=== PATIENT | female | born 1960 | race Caucasian/White ===

== ENCOUNTER 2020-04-24 18:26 | Inpatient (IN) | payer BC ==
[~2020-04-24] VITALS: Ht 157.5 cm; Wt 61.4 kg
[2020-04-24] MEDS ORDERED: ondansetron/PF 4mg/2ml inj IV ONE (19:35)
[2020-04-24] MEDS ORDERED: CefTRIAXone/D5W-Rocephin 1gm 50 ML IV ONE (19:35)
[2020-04-24] MEDS ORDERED: normal saline 1000ML IV soln IVB ONE ×2 (19:35→20:50)
[2020-04-24 20:13] LABS: BASOPHILS % (AUTO) 0.4 % (0-1); EOSINOPHILS # (AUTO) 0.1 X10'3 (0-0.9); EOSINOPHILS % (AUTO) 0.5 % (0-6); HEMATOCRIT 39.3 % (35.0-45.0); LYMPHOCYTES # (AUTO) 1.7 X10'3 (1.1-4.8); LYMPHOCYTES % (AUTO) 17.4 % (21-51); MEAN CORPUSCULAR HEMOGLOBIN 30.4 PG (27.0-31.0); MEAN CORPUSCULAR VOLUME 92.1 FL (78-98); MEAN PLATELET VOLUME 7.3 FL (7.4-10.4); MONOCYTES % (AUTO) 0.4 % (2-12); NEUTROPHILS % (AUTO) 81.3 % (42-75); PLATELET COUNT 289 X10'3 (140-440); RED BLOOD COUNT 4.27 X10'6 (4.20-5.60); RED CELL DISTRIBUTION WIDTH 14.8 % (11.5-14.5); WHITE BLOOD COUNT 9.8 X10'3 (4.5-11.0)
[2020-04-24 20:26] LABS: CLARITY,URINE CLEAR (Clear); COLOR,URINE YELLOW (Yellow); GLUCOSE, URINE NEGATIVE (Neg); KETONES,URINE 15 mg/dl (Neg); LEUKOCYTE ESTERASE ,URINE NEGATIVE (Neg); NITRITES, URINE NEGATIVE (Neg); OCCULT BLOOD,URINE TRACE-INTACT (Neg); PH,URINE 5.5 (4.8-8.0); PROTEIN,URINE NEGATIVE (Neg)
[2020-04-24 20:28] LABS: ALANINE AMINOTRANSFERASE 96 U/L (12-78); ALBUMIN 3.2 G/DL (3.4-5.0); ALBUMIN/GLOBULIN RATIO 0.8 (1.1-1.5); ALKALINE PHOSPHATASE 158 IU/L (46-116); ANION GAP 12 (8-16); ASPARTATE AMINO TRANSFERASE 67 U/L (10-37); BILIRUBIN,TOTAL 0.4 MG/DL (0.1-1.0); BLOOD UREA NITROGEN 19 MG/DL (7-18); BUN/CREATININE RATIO 16.8 (6.6-38.0); CALCIUM 8.8 MG/DL (8.5-10.1); CHLORIDE 102 MMOL/L (99-107); CREATININE 1.13 MG/DL (0.40-0.90); GLUCOSE 131 MG/DL (70-104); POTASSIUM 4.4 MMOL/L (3.5-5.1); SODIUM 137 MMOL/L (135-145); TOTAL CARBON DIOXIDE 23.3 MMOL/L (24-32); TOTAL PROTEIN 7.4 G/DL (6.4-8.2); eGFR 50 ML/MIN
[2020-04-24 20:39] LABS: UA COLLECTION TYPE CLN CATCH MIDSTREAM
[2020-04-24 20:40] LABS: BACTERIA,URINE FEW /HPF (Neg); RBC,URINE 0-2 /HPF (0-2); SQUAMOUS EPITHELIAL CELL,UR FEW /LPF (FEW); WBC,URINE 0-4 /HPF (0-4)
[2020-04-24 21:18] LABS: URINE AMPHETAMINE SCREEN NEGATIVE (Neg); URINE BARBITUATE SCREEN NEGATIVE (Neg); URINE BENZODIAZEPINES SCREEN NEGATIVE (Neg); URINE CANNABINOID SCREEN NEGATIVE (Neg); URINE COCAINE SCREEN NEGATIVE (Neg); URINE METHADONE SCREEN NEGATIVE (Neg); URINE OPIATE SCREEN NEGATIVE (Neg); URINE PHENCYCLIDINE SCREEN NEGATIVE (Neg)
[2020-04-24] MEDS ORDERED: acetaminophen 325mg tablet PO ONE ×2 (21:25→21:35)
[2020-04-24 22:20] LABS: D-DIMER 3.06 MG/L FEU (0-0.50)
[2020-04-24] MEDS ORDERED: iohexol 350MG/ML 100ml bottle IV ONE (22:40)
[2020-04-24] MEDS ORDERED: proCHLORperazine 10 MG/2 ml inj IV ONE (22:55)
[2020-04-25] VITALS (8 sets, daily range): BP systolic 88–140; BP diastolic 45–94
[2020-04-25] MEDS ORDERED: LEVO88TA2 PO (00:52)
[2020-04-25] MEDS ORDERED: LIOT5TAB10 PO (00:53)
[2020-04-25] MEDS ORDERED: METF500T PO (00:54)
[2020-04-25] MEDS ORDERED: BUPR100T13 PO (00:56)
[2020-04-25] MEDS ORDERED: MILN50TA PO (00:56)
[2020-04-25] MEDS ORDERED: PROG200C11 PO (00:56)
[2020-04-25] MEDS ORDERED: NITR100C PO (00:56)
[2020-04-25] MEDS ORDERED: potassium CL 10mEq/100ml bag 100 ML IV PRN ×2 (03:00)
[2020-04-25] MEDS ORDERED: ondansetron/PF 4mg/2ml inj IV PRN (03:00)
[2020-04-25] MEDS ORDERED: potassium Cl 20 mEq SR tablet PO PRN ×2 (03:00)
[2020-04-25] MEDS ORDERED: mag hydrox/Alum hydrox/simeth 30ml oral suspension PO PRN (03:00)
[2020-04-25] MEDS ORDERED: glucagon, human recombinant 1mg kit SUBCUT PRN (03:05)
[2020-04-25] MEDS ORDERED: MESSAGE TO PHARMACY PO ONE (03:05)
[2020-04-25] MEDS ORDERED: insulin Lispro (HumaLOG) vial - multi-dose SQ SCH (03:05)
[2020-04-25] MEDS ORDERED: dextrose 50%-water 50ml dispensing syringe IV PRN ×2 (03:05)
[2020-04-25] MEDS ORDERED: dextrose ORAL solution 15 GM/59 ML bottle PO PRN ×2 (03:05)
[2020-04-25] MEDS: normal saline 1000ml 1,000 ML IV SCH ×3 (04:23→23:01)
[2020-04-25] MEDS: magnesium hydroxide 30ml (MOM) UD suspension PO PRN ×2 (05:07→11:27)
--- NOTE | 2020-04-25 06:05 | NUR ---
Patient in room [facility]. I have received report from ESTRELLITA Urrutia and had the opportunity to ask questions and assume patient care.
[2020-04-25] MEDS ORDERED: BUPR-344 PO (06:12)
[2020-04-25] MEDS ORDERED: MILNACIPRAN HCL 50 MG TABLET PO SCH (08:00)
[2020-04-25] MEDS: K and/or MAG REPLACEMENT MC SCH ×2 (08:00→20:00)
[2020-04-25] MEDS ORDERED: liothyronine sod 5mcg tablet PO SCH (08:00)
[2020-04-25] MEDS: buPROPion SR 150mg tablet PO SCH ×2 (08:19→20:41)
[2020-04-25] MEDS: levoTHYROXINE 75mcg tablet PO SCH (08:21)
[2020-04-25] MEDS: heparin, porcine 5000 units/ml vial SQ SCH ×2 (08:25→20:41)
[2020-04-25] MEDS ORDERED: pneumococcal 23-VAL P-sac vacc 25 mcg/0.5ml vial IMVAC ONE (10:00)
[2020-04-25] MEDS: acetaminophen 325mg tablet PO PRN ×2 (11:33→16:47)
[2020-04-25] MEDS ORDERED: mineral oil 133ml enema RC PRN (11:35)
[2020-04-25] MEDS ORDERED: bisacodyl 10mg suppository rectal RC PRN (11:35)
[2020-04-25] MEDS ORDERED: cyclobenzaprine 10mg tablet PO ONE (14:00)
--- NOTE | 2020-04-25 14:59 | NUR ---
Student documentation: I have reviewed and agree with all interventions, assessments performed and documented by Tru, nursing informatics specialist.
--- NOTE | 2020-04-25 15:00 | NUR ---
Student Medication Administration: For this medication-pass time frame, all medication were reviewed, dispensed, administered and documented per hospital policy by kendra Ott.
--- NOTE | 2020-04-25 16:24 | NUR ---
PAGER ID: [phone] MESSAGE: [id number] Deann Chang: patients temp is 104.0 .. currently cooling her with ice packs. Tylenol not due yet. would you like any new orders? [id number]
--- NOTE | 2020-04-25 16:29 | NUR ---
patients temp was reported 104 orally. temperature taken again with new thermometer showed 104 again. Ice packs placed around patient to begin cooling. Dr. Kaiden guardado, she asked to take rectal temperature, repeat procalcitonin, and continue conservative measures to cool patient. repeat rectal temperature is 104.3.
[2020-04-25 18:51] LABS: CLARITY,URINE CLEAR (Clear); COLOR,URINE STRAW (Yellow); GLUCOSE, URINE NEGATIVE (Neg); KETONES,URINE NEGATIVE (Neg); LEUKOCYTE ESTERASE ,URINE NEGATIVE (Neg); NITRITES, URINE NEGATIVE (Neg); OCCULT BLOOD,URINE NEGATIVE (Neg); PROTEIN,URINE NEGATIVE (Neg); UROBILINOGEN,URINE 0.2 E.U/dL (0.2-1.0)
[2020-04-25 19:04] LABS: UA COLLECTION TYPE CLN CATCH MIDSTREAM
--- NOTE | 2020-04-25 19:15 | NUR ---
Problems reprioritized. Patient report given, questions answered & plan of care reviewed with ESTRELLITA Zuniga.
--- NOTE | 2020-04-25 19:22 | NUR ---
Patient in room [facility]. I have received report from ESTRELLITA Beltran and had the opportunity to ask questions and assume patient care.
--- NOTE | 2020-04-25 19:30 | NUR ---
Transferred patient with belongings to room 4022K
[2020-04-25] MEDS ORDERED: CefTRIAXone/D5W-Rocephin 1gm 50 ML IV SCH (20:00)
[2020-04-25] MEDS: progesterone, micronized 100mg capsule PO SCH (20:59)
[2020-04-25] MEDS ORDERED: insulin glargine (Lantus) pen - multi-dose SQ SCH (21:00)
[2020-04-25] MEDS: Melatonin 3mg tablet PO SCH (23:00)
[2020-04-25] MEDS: piperacillin/tazo 3.375gm/50ml 50 ML IV SCH (23:01)
--- NOTE | 2020-04-26 01:15 | NUR ---
Pt. spike fever again [address] Hirsch has been notified ,he order blood culture 2 times for the pt.We will continue with pt. care,
[2020-04-26] MEDS: acetaminophen 325mg tablet PO PRN ×2 (01:28→20:05)
--- NOTE | 2020-04-26 06:28 | NUR ---
Problems reprioritized. Patient report given, questions answered & plan of care reviewed with ESTRELLITA Lucas.
[2020-04-26 06:46] LABS: BASOPHILS % (AUTO) 0.3 % (0-1); EOSINOPHILS % (AUTO) 0.2 % (0-6); HEMOGLOBIN 10.9 g/dl (12.0-16.0); LYMPHOCYTES # (AUTO) 2.2 X10'3 (1.1-4.8); LYMPHOCYTES % (AUTO) 21.6 % (21-51); MEAN CORPUSCULAR HEMOGLOBIN 30.2 PG (27.0-31.0); MEAN CORPUSCULAR HGB CONC 33.2 g/dL (33.0-36.5); MEAN CORPUSCULAR VOLUME 90.9 FL (78-98); MEAN PLATELET VOLUME 7.9 FL (7.4-10.4); MONOCYTES # (AUTO) 0.9 X10'3 (0-0.9); MONOCYTES % (AUTO) 8.9 % (2-12); NEUTROPHILS # (AUTO) 6.9 X10'3 (1.8-7.7); PLATELET COUNT 238 X10'3 (140-440); RED BLOOD COUNT 3.63 X10'6 (4.20-5.60); RED CELL DISTRIBUTION WIDTH 14.9 % (11.5-14.5)
[2020-04-26 06:57] LABS: ALANINE AMINOTRANSFERASE 89 U/L (12-78); ALBUMIN 2.4 G/DL (3.4-5.0); ALBUMIN/GLOBULIN RATIO 0.7 (1.1-1.5); ALKALINE PHOSPHATASE 127 IU/L (46-116); ANION GAP 10 (8-16); ASPARTATE AMINO TRANSFERASE 48 U/L (10-37); BILIRUBIN,TOTAL 0.4 MG/DL (0.1-1.0); BLOOD UREA NITROGEN 11 MG/DL (7-18); BUN/CREATININE RATIO 16.7 (6.6-38.0); CALCIUM 8.1 MG/DL (8.5-10.1); CHLORIDE 106 MMOL/L (99-107); CREATININE 0.66 MG/DL (0.40-0.90); GLUCOSE 103 MG/DL (70-104); LIPASE 77 U/L (73-393); POTASSIUM 3.7 MMOL/L (3.5-5.1); SODIUM 139 MMOL/L (135-145); TOTAL CARBON DIOXIDE 23.3 MMOL/L (24-32); TOTAL PROTEIN 5.8 G/DL (6.4-8.2); eGFR > 90 ML/MIN
[2020-04-26 07:00] VITALS: BP 93/50
[2020-04-26] MEDS: K and/or MAG REPLACEMENT MC SCH ×2 (08:00→20:00)
[2020-04-26] MEDS ORDERED: atenolol 25mg tablet PO SCH (08:00)
[2020-04-26] MEDS: buPROPion SR 150mg tablet PO SCH ×2 (08:18→20:05)
[2020-04-26] MEDS: levoTHYROXINE 75mcg tablet PO SCH (08:18)
[2020-04-26] MEDS: folic acid 1mg tablet PO SCH (08:18)
[2020-04-26] MEDS: thiamine 100mg tablet PO SCH (08:18)
[2020-04-26] MEDS: piperacillin/tazo 3.375gm/50ml 50 ML IV SCH ×2 (08:19→16:23)
[2020-04-26] MEDS: heparin, porcine 5000 units/ml vial SQ SCH ×2 (08:19→20:04)
[2020-04-26 10:00] VITALS: BP 100/58
[2020-04-26] MEDS: normal saline 1000ml 1,000 ML IV SCH ×3 (12:40→21:46)
[2020-04-26 18:00] VITALS: BP 110/62
--- NOTE | 2020-04-26 18:10 | NUR ---
Patient in room [facility] 4022B. I have received report from ESTRELLITA Unger and had the opportunity to ask questions and assume patient care.
[2020-04-26] MEDS: magnesium hydroxide 30ml (MOM) UD suspension PO PRN (20:03)
[2020-04-26] MEDS: Melatonin 3mg tablet PO SCH (20:04)
[2020-04-26] MEDS: lactobacillus rhamnosus 10,000 MMU CELLS/CAPSULE PO SCH (20:05)
[2020-04-26] MEDS: progesterone, micronized 100mg capsule PO SCH (20:06)
[2020-04-26 22:00] VITALS: BP 140/56
[2020-04-27] MEDS: piperacillin/tazo 3.375gm/50ml 50 ML IV SCH ×2 (00:03→08:14)
[2020-04-27] MEDS: acetaminophen 325mg tablet PO PRN (04:13)
[2020-04-27 06:00] VITALS: BP 118/71
--- NOTE | 2020-04-27 06:20 | NUR ---
Problems reprioritized. Patient report given, questions answered & plan of care reviewed with ESTRELLITA Unger.
[2020-04-27 06:27] LABS: BASOPHILS % (AUTO) 0.6 % (0-1); EOSINOPHILS # (AUTO) 0.1 X10'3 (0-0.9); EOSINOPHILS % (AUTO) 1.8 % (0-6); HEMATOCRIT 30.8 % (35.0-45.0); HEMOGLOBIN 10.2 g/dl (12.0-16.0); LYMPHOCYTES % (AUTO) 25.5 % (21-51); MEAN CORPUSCULAR HGB CONC 33.2 g/dL (33.0-36.5); MEAN CORPUSCULAR VOLUME 90.4 FL (78-98); MEAN PLATELET VOLUME 8.6 FL (7.4-10.4); MONOCYTES % (AUTO) 13.3 % (2-12); NEUTROPHILS # (AUTO) 4.6 X10'3 (1.8-7.7); NEUTROPHILS % (AUTO) 58.8 % (42-75); PLATELET COUNT 270 X10'3 (140-440); RED BLOOD COUNT 3.41 X10'6 (4.20-5.60); WHITE BLOOD COUNT 7.8 X10'3 (4.5-11.0)
[2020-04-27 06:53] LABS: ALANINE AMINOTRANSFERASE 98 U/L (12-78); ALBUMIN 2.3 G/DL (3.4-5.0); ALBUMIN/GLOBULIN RATIO 0.7 (1.1-1.5); ALKALINE PHOSPHATASE 131 IU/L (46-116); ANION GAP 9 (8-16); ASPARTATE AMINO TRANSFERASE 44 U/L (10-37); BILIRUBIN,TOTAL 0.4 MG/DL (0.1-1.0); BLOOD UREA NITROGEN 7 MG/DL (7-18); BUN/CREATININE RATIO 9.7 (6.6-38.0); CALCIUM 7.8 MG/DL (8.5-10.1); CHLORIDE 108 MMOL/L (99-107); CREATININE 0.72 MG/DL (0.40-0.90); GLUCOSE 98 MG/DL (70-104); POTASSIUM 3.5 MMOL/L (3.5-5.1); SODIUM 143 MMOL/L (135-145); TOTAL CARBON DIOXIDE 25.6 MMOL/L (24-32); TOTAL PROTEIN 5.8 G/DL (6.4-8.2); eGFR 83 ML/MIN
[2020-04-27] MEDS: thiamine 100mg tablet PO SCH (08:11)
[2020-04-27] MEDS: lactobacillus rhamnosus 10,000 MMU CELLS/CAPSULE PO SCH (08:11)
[2020-04-27] MEDS: levoTHYROXINE 75mcg tablet PO SCH (08:11)
[2020-04-27] MEDS: folic acid 1mg tablet PO SCH (08:11)
[2020-04-27] MEDS: buPROPion SR 150mg tablet PO SCH (08:11)
[2020-04-27] MEDS: heparin, porcine 5000 units/ml vial SQ SCH (08:14)
[2020-04-27] MEDS ORDERED: ciprofloxacin lact 400MG/200ML 200 ML IV SCH (09:00)
[2020-04-27] MEDS ORDERED: ciprofloxacin 250mg tablet PO SCH (09:10)
[2020-04-27] MEDS ORDERED: CIPR250T4 PO (09:36)
[2020-04-27 10:00] VITALS: BP 120/66
--- NOTE | 2020-04-27 12:45 | NUR ---
Received discharge orders for pt to dc to home today. IV removed with cannula intact. No redness/swelling at insertion site. Reviewed discharge orders with pt and retrieved pts own medications from the Pharmacy. Pt discharged via w/c to the front lobby to get well.
[2020-04-29] MEDS ORDERED: LORazepam 1 MG tablet PO PRN (17:15)
[2020-04-29] MEDS ORDERED: LORazepam 2 mg/ml vial IV PRN (17:15)
== END 2020-04-27 13:15 | disposition home or self-care (01) | DRG 872 ==
LOC: ER 18:27 → ED HOLD 04-25 02:59 → SUR 3N 04-25 04:15 → ORTHO 4S 04-25 19:30
PROVIDERS: ADMIT Internal Medicine; ATTEND Internal Medicine
PROC: B32T1ZZ Computerized Tomography (CT Scan) of Left Pulmonary Artery using Low Osmolar Contrast (ICD-10-PCS; principal; 2020-04-24)
PROC: B32S1ZZ Computerized Tomography (CT Scan) of Right Pulmonary Artery using Low Osmolar Contrast (ICD-10-PCS; 2020-04-24)
DX: A41.51 Sepsis due to Escherichia coli [E. coli] (principal); N10 Acute pyelonephritis; E03.9 Hypothyroidism, unspecified; E11.22 Type 2 diabetes mellitus with diabetic chronic kidney disease; F32.9 Major depressive disorder, single episode, unspecified; G89.29 Other chronic pain; K59.09 Other constipation; M79.7 Fibromyalgia; N18.9 Chronic kidney disease, unspecified; Z98.51 Tubal ligation status; Z98.82 Breast implant status; Z20.828 Contact with and (suspected) exposure to other viral communicable diseases
CPT/HCPCS: 36415; 71045; 71275; 74177; 80053; 80305; 81001; 81003; 82948; 83036; 83605; 83690; 84145; 84443; 85025; 85379; 85610; 87040; 87077; 87081; 87186; 87635; 99285; G0378; J0696; J0780; J1644; J1815; J2405; J2543; J7030; Q9967